=== PATIENT | female | born 1995 | race Caucasian/White ===

== ENCOUNTER 2017-10-21 12:45 | Emergency (ER) | payer BC, SELFPAY ==
[2017-10-21 12:46] VITALS: BP 130/94; PULSE 118; RESP 18; TEMP 37.6; O2SAT 100; BMI 48.5
[2017-10-21 14:00] LABS: Absolute Lymphocyte Count 1.95 X10^3/ul (0.83-4.51); Absolute Neutrophil Count 5.9 X10^3/uL (2.0-7.7); Basophil# 0.03 X10^3/uL; Basophil% 0.4 % (0-1); Eosinophil# 0.16 X10^3/uL; Eosinophils% 1.9 % (0-5); Hematocrit 43.6 % (37-47); Hemoglobin 15.7 g/dl (12.0-15.0); Lymphocyte # 1.95 X10^3/ul (4.0); Lymphocyte % 22.9 % (19-41); Mean Corpuscular Hgb 29.5 pg (27.0-32.0); Mean Corpuscular Volume 81.8 fL (81-99); Mean Platelet Vol. 9.6 fl (6.2-12.0); Monocyte# 0.46 X10^3/uL; Monocyte% 5.4 % (0-10); Neutrophil # 5.88 X10^3/uL (2.7-7.7); Neutrophil % 69.2 % (47-70); Platelet Count 266 K/mm3 (150-450); RBC Distribution Width CV 12.6 % (11.6-14.6); RBC Distribution Width SD 37.7 fl (35.1-43.9); Red Blood Count 5.33 M/mm3 (4.2-5.4); White Blood Count 8.5 K/mm3 (4.4-11.0)
[2017-10-21 14:01] LABS: POSITIVE COUNT NO; POSITIVE DIFFERENTIAL NO; POSITIVE MORPHOLOGY NO
[2017-10-21 14:14] LABS: ALB/GLOB Ratio 1.1 RATIO (0.9-2.4); AST(SGOT) 18 U/L (15-37); Alanine Aminotransfer ALT/SGPT 36 U/L (13-56); Albumin, Serum 4.1 g/dL (3.2-5.0); Alkaline Phosphatase 96 U/L (45-117); Anion Gap 8 (5-15); BUN 12 mg/dL (7-18); Calcium,Total 8.9 mg/dL (8.5-10.1); Chloride 106 mmol/L (98-107); EST Glomerular Filtration Rate 96 mL/min (>60); Est Glom Filt Rate - Afr Amer 116 mL/min (>60); Estimated Creatinine Clearance 92.02 ml/min; Globulin 3.7 g/dL (2.2-4.2); Glucose 83 mg/dL (74-106); Lipase 167 U/L (73-393); Potassium 3.9 mmol/L (3.5-5.1); Protein, Total 7.8 g/dL (6.4-8.2); Sodium Level 139 mmol/L (136-145)
[2017-10-21 14:41] LABS: Mucous, Urine 0 SEEN /hpf (<or=2+)
[2017-10-21 14:42] LABS: Color, Urine Yellow (Yellow); Glucose, Dipstick Normal (Normal); Ketone-Dipstick 5 mg/dl (Negative); Leukocyte Esterase-Dipstick 25 /ul (Negative); Nitrite-Dipstick Negative (Negative); Occult Blood-Urine 50 /ul (Negative); Protein-Dipstick 30 mg/dl (Negative); Urine Bilirubin Dipstick Negative (Negative); Urine Clarity Sl. Cloudy (Clear); Urine Urobilinogen Normal (Normal)
[2017-10-21 14:48] LABS: Bacteria 1+ /hpf (None Seen); Red Blood Cells-Urine 0-5 SEEN /hpf (0-5); Squamous Epithelial Cells - UA 0-5 SEEN /hpf (5-10); White Blood Cells 0-5 SEEN /hpf (0-5)
--- NOTE | 2017-10-21 15:14 | ED.VISSUMM ---
- ER Visit Summary Date of Service: 10/21/17 Chief Complaint: Intermittent left upper quadrant pain that is worse today History of Present Illness: The patient is a 22 F ports intermittent left upper quadrant pain for 1 month. She presents today because the pain is worse associated with nausea. She denies cough, shortness of breath, difficulty breathing or pleuritic pain. She denies history of liver disease, food intolerance or use of alcohol. She denies any nausea, vomiting or diarrhea at the onset of her abdominal pain. She states she had one loose stool with nausea today and this concerned her. She denies dysuria, frequency, urgency or hematuria. She denies history of renal ureterolithiasis. She denies any back or flank pain. She denies any vaginal bleeding, vaginal discharge or any vaginal lesions. She denies headache, photophobia sips of her neck. She denies paresthesia, anesthesia or motor weakness. She denies bruising easily or problems with bleeding disorder. She denies any allergic type symptoms. Placed on nitrofurantoin for UTI on Tuesday. Exit interview I was informed that patient took a bubble bath 1-2 days prior to being diagnosed with urinary tract infection and also elaborated sexual activity. Physical Examination: Vital signs are remarkable for a blood pressure 123/93. She is afebrile. Head is atraumatic normocephalic. Pupils are equal round reactive. Extraocular muscles are intact. TMs are pearly white with landmarks noted. Nares patent with no drainage. Posterior pharynx without erythema or exudate. Uvula is midline. There is no dysphonia or dysphasia. Trachea is midline. There is no stridor with auscultation of the neck. Heart is regular without murmur, gallop or rub. S1 and S2 are normal. Lungs are clear to auscultation with good movement of air bilaterally. Abdomen is soft with tenderness and decreased bowel sounds. Question of guarding to deep palpation left lower quadrant and right lower quadrant. There is no CVA tenderness. There are no skin lesions. There is no evidence of trauma. The remainder of her exam is unremarkable please read written note Test Results: CT of the abdomen pelvis with IV contrast is negative for any acute process. CBC and BMP are normal. Urine is positive for leukoesterase and blood 550 respectively. Nitrites negative. Urinalysis reveals 5-10 WBCs 0-5 RBCs and 2+ bacteria. Emergency Department Course and Treatment: Her abdominal pain with recent UTI CBC BMP and UA was obtained. Since she is having no urinary symptoms this may be present appendicitis secondary to information of the ureter or possibly diverticular disease. Because there is evidence that her urinary tract infection has not improved a culture was sent. She received 1 g of Rocephin IV piggyback in the emergency department and discharged with a prescription for ciprofloxacin 500 mg twice daily ?7 days. Treatment Plan: Ciprofloxacin 500 mg twice daily for 7 days and follow-up with PCP Disposition: To home after Rocephin infuses Impression: 1. Right lower and left lower quadrant abdominal pain uncertain etiology 2. Urinary tract infection failed outpatient appropriate treatment This note was generated with [employer] dictation software. It may contain incorrect words, spelling, and punctuation that were not noted in review of the chart prior to signing ED Disposition - Plan for ED Patient: Disposition: Home or Assisted Living Chief Complaint: Abd Pain Instructions: ED UTI Cystitis Female Prescriptions: Ciprofloxacin [Cipro] 500 mg PO BID #14 tab Referrals: Care Physician,No Primary [Primary Care Provider] - Alexis Hu MD [NON-STAFF] - 3-5 Days
--- NOTE | 2017-10-21 15:28 | ED.DCSUM_ITS ---
- ER Visit Summary Date of Service: 10/21/17 Chief Complaint: [] History of Present Illness: The patient is a 22 F [] Physical Examination: [] Test Results: [] Emergency Department Course and Treatment: [] Treatment Plan: [] Disposition: [] Impression: [] This note was generated with [employer] dictation software. It may contain incorrect words, spelling, and punctuation that were not noted in review of the chart prior to signing ED Disposition - Plan for ED Patient: Disposition: Home or Assisted Living Chief Complaint: Abd Pain Instructions: ED UTI Cystitis Female Prescriptions: Ciprofloxacin [Cipro] 500 mg PO BID #14 tab Referrals: Care Physician,No Primary [Primary Care Provider] - Mina Watkins MD [STAFF PHYSICIAN] - 1 Week
== END 2017-10-21 16:55 | disposition home or self-care (01) ==
PROVIDERS: Emergency Provider Emergency Medicine
DX: R10.12 Left upper quadrant pain (principal); N39.0 Urinary tract infection, site not specified; E66.9 Obesity, unspecified
CPT/HCPCS: 80053; 81001; 83690; 85025; 96365; 99283; J7050; A4216

== ENCOUNTER 2021-08-31 02:50 | Inpatient (IN) | payer BC, SELFPAY ==
[2021-08-31] VITALS (22 sets, daily range): BP systolic 114–153; BP diastolic 50–97; PULSE 73–94; RESP 12–20; TEMP 36.1–36.8; O2SAT 95–100; BMI 51.5
[2021-08-31] MEDS: Lactated Ringers 1,000 ML 999 ML IV ×2 (02:30→15:50)
[2021-08-31 02:46] LABS: ROM Internal Control Test YES-OK TO RESULT pt. (Internal QC)
[2021-08-31 02:47] LABS: ROM Patient Test POSITIVE (Negative)
[2021-08-31] MEDS: Acetaminophen 500 MG Tablet 1000 MG PO ×4 (02:58→21:06)
[2021-08-31 03:07] LABS: Absolute Neutrophil Count 7.3 X10^3/uL (2.0-7.7); Basophil# 0.02 X10^3/uL; Basophil% 0.2 % (0-1); Eosinophil# 0.14 X10^3/uL; Eosinophils% 1.4 % (0-5); Hematocrit 36.4 % (37-47); Hemoglobin 13.2 g/dL (12.0-15.0); Lymphocyte % 18.9 % (19-41); Mean Corp Hgb Conc 36.3 g/dL (32-36); Mean Corpuscular Hgb 29.5 pg (27.0-32.0); Mean Corpuscular Volume 81.4 fL (81-99); Mean Platelet Vol. 10.7 fl (6.2-12.0); Monocyte# 0.59 X10^3/uL; Monocyte% 5.9 % (0-10); NRBC Flagged by Analyzer 0 % (0-5); Neutrophil # 7.34 X10^3/uL (2.7-7.7); POSITIVE COUNT YES; Platelet Count 150 K/mm3 (150-450); RBC Distribution Width CV 12.6 % (11.6-14.6); RBC Distribution Width SD 37.3 fl (35.1-43.9); Red Blood Count 4.47 M/mm3 (4.2-5.4); White Blood Count 10.1 K/mm3 (4.4-11.0)
[2021-08-31 03:09] LABS: Differential Indicated SCAN CRITERIA MET
[2021-08-31] MEDS: Sodium Citrate/Citric Acid 30 ML UDC PO (03:31)
[2021-08-31] MEDS: Lactated Ringers 1,000 ML 150 ML IV (03:31)
--- NOTE | 2021-08-31 03:42 | PCM.HP.OB ---
HPI - General General Date of Admission: 08/31/21 HPI Narrative MARÍA TURNER, is a 26 F who presents with LOF & ctxs. Maternal Data Information Final JESUS: [birth year] (37&2) [facility] Medical History (Updated 08/31/21 @ 03:[address] Orlando Tam MD) Chronic hypertension Chronic hypertension affecting Kidney disease Nephrotic syndrome Home Medications aspirin [Baby Aspirin] 1 tab PO DAILY 08/31/21 [History Last Taken Unknown] diltiazem HCl [Cardizem] 60 mg PO BID 08/31/21 [History Last Taken Unknown] labetalol 200 mg PO BID 08/31/21 [History Last Taken Unknown] [id number] [] 1 tab PO DAILY 08/31/21 [History Last Taken Unknown] Allergy/AdvReac Type Severity Reaction Status Date / Time No Known Allergies Allergy Verified 08/31/21 02:32 Family History no significant family his Surgical History no surgical history Social History Smoking Status: Never smoker History Elective abortions Hx Para 0 Spontaneous abortions Hx # Term Pregnancies Ectopic pregnancies Hx # Pregnancies Multiple births # of living children Vital Signs Vital Signs Vital Signs: 08/31/21 02:04 08/31/21 02:05 08/31/21 03:06 Temperature 97.8 F 97.8 F Temperature Source Temporal Temporal Pulse Rate 87 84 Respiratory Rate 18 Blood Pressure 140/97 H 140/97 H Blood Pressure Mean 111 BP Systolic 140 BP Diastolic 97 Blood Pressure Source Monitor Blood Pressure Position Semi-Fowlers Blood Pressure Location Left Arm Pulse Ox 98 98 Oxygen Delivery Method Room Air 08/31/21 03:07 08/31/21 03:09 Temperature 97.8 F Temperature Source Temporal Pulse Rate 74 73 Respiratory Rate 18 Blood Pressure 140/97 H Blood Pressure Mean 111 BP Systolic BP Diastolic Blood Pressure Source Monitor Blood Pressure Position Semi-Fowlers Blood Pressure Location Left Arm Pulse Ox 99 100 Oxygen Delivery Method Room Air Weight Weight: 300 lb Body Mass Index (BMI) 51.5 Physical Exam Const alert, oriented x3 and no apparent distress Chest inspection of chest normal GI soft to palpation and non-distended Inspection: gravid external exam normal Narrative: 4cm on admission but now 5-6cm dilated per RN Extremity normal to inspection and no calf tenderness Labs Labs Labs: Blood Type Pending Antibody Screen Pending Hct 36.4 % (37-47) L Hgb 13.2 g/dL (12.0-15.0) See [facility] H&P Assessment & Plan (1) Chronic hypertension affecting : PLAN: On cardizem & labetalol (2) Nephrotic syndrome: PLAN: Patient seen by MFM during and has suspected FSGS. (3) Breech presentation: QUALIFIERS: Fetus number: single or unspecified fetus Qualified Code(s): O32.1XX0 - Maternal care for breech presentation, not applicable or unspecified COMMENT: 37&2 PLAN: MOD - proceed with for breech and labor. Patient signed informed consent with last week. Briefly reviewed R/B/A again and patient wishes to proceed with .
--- NOTE | 2021-08-31 05:26 | OP.PCM_ITS ---
Maternal Data Information Final JESUS: [birth year] Gestational age: 37&2 Details Operative Information Date of Procedure: 08/31/21 Pre-Operative Diagnosis: (1) Breech presentation (2) Labor (3) Chronic hypertension Post-Operative Diagnosis: Same Indications for : Breech Indications Narrative: The patient was taken to the operating room where spinal anesthesia was placed & found to be adequate. She was prepped and draped in the dorsal supine position with a leftward tilt. A Pfannenstiel skin incision was made approximately 2 cm above the symphysis pubis and carried through to the underlying fascia with the scalpel. The fascia was incised incised in the midline and extended laterally with the Joaquin scissors. The rectus muscles were in the midline and the peritoneum was entered carefully and bluntly. The peritoneal incision was stretched and the bladder blade was inserted. Vesicouterine peritoneum was tented up, incised & then bladder flap created gently. The uterine incision was made in a low transverse fashion with the scalpel and extended superiorly and inferiorly with blunt dissection. The 's buttocks were grasped and delivered carefully via typical breech maneuvers. The 3VC cord was clamped and cut. The was handed off to the waiting business process expert. The placenta was delivered with fundal massage and gentle traction in the standard fashion. The uterus was exteriorized and cleared of clots and debris. The uterine incision was closed by using 2 #1 Vicryl sutures in a running locked fashion. Monocryl suture was used in an imbricating fashion. The incision was examined and was found to be hemostatic. The uterus was returned to the abd ominal cavity. After irrigating Frankie was placed over the uterine incision as some areas were denuded (but hemostatic). The rectus muscle was examined and any bleeding was Bovie cauterized & once hemostatic Frankie was placed on the rectus muscle as well. The fascia was closed with PDS suture in a running standard fashion. The subcutaneous tissue was examining and any bleeding was Bovie cauterized. The subcutaneous tissue was reapproximated with interrupted sutures. The skin was closed in a subcuticular fashion by the ELECTROPLATER while I was present in the labor & delivery unit. The remainder of the procedure was performed by me with assistance. All sponge, lap, and needle counts were correct. The patient was taken to her room for recovery in a stable condition. Classification: RASHARD Procedure Type: low transverse utilization review specialist #1: Lali Herrera Type of Anesthesia: Spinal Antibiotic Given: Ancef 3 grams IV x1 Estimated Blood Loss: 900ml Fluids Replaced: 1000ml Procedure Start Time: 04:11 Procedure Stop Time: 05:20 Findings Description of Procedure: Normal maternal uterus and adnexa Presentation: Positive for Complete Breech Amniotic Membrane Rupture Type: Artificial Amniotic Fluid Description: Clear Placental Delivery Description: Expressed Placenta Disposition: [facility] Cord Vessel Description: 3 Vessels Cord Entanglement: None A Gender: Male (weight = 2595g) (1 minute): 8 (5 minute): 9 Delayed Cord Clamping: No Complications Complications: None
[2021-08-31] MEDS: Oxytocin 30 units/NS 500 ml 30 UNITS/500 ML IV.SOLN 167 UNITS IV (05:35)
[2021-08-31] MEDS: Ondansetron 4 MG/2 ML Vial IV (06:20)
[2021-08-31] MEDS: Ketorolac 30 MG/ML Syringe IV ×3 (06:38→21:05)
[2021-08-31] MEDS: Lactated Ringers 1,000 ML 100 ML IV (09:03)
[2021-08-31] MEDS: Senna/Docusate Sodium 1 Tablet PO (09:03)
[2021-08-31] MEDS: Labetalol 200 MG Tablet PO ×2 (09:03→21:19)
[2021-08-31] MEDS: dilTIAZem 60 MG Tablet PO ×2 (09:03→21:19)
--- NOTE | 2021-08-31 12:15 | NURSING ---
Received report from Ligia Bella RN. I will assume care of patient at this time.
[2021-08-31 14:41] LABS: ALB/GLOB Ratio 0.5 RATIO (0.9-2.4); AST(SGOT) 31 U/L (15-37); Alanine Aminotransfer ALT/SGPT 23 U/L (13-56); Albumin, Serum 1.8 g/dL (3.2-5.0); Alkaline Phosphatase 95 U/L (45-117); Anion Gap 10 (5-15); BUN 12 mg/dL (7-18); BUN/Creat Ratio 18.6 RATIO (10-20); Calcium,Total 8.5 mg/dL (8.5-10.1); Chloride 110 mmol/L (98-107); Creatinine, Serum 0.65 mg/dL (0.55-1.02); EST Glomerular Filtration Rate 119 mL/min (>60); Est Glom Filt Rate - Afr Amer 144 mL/min (>60); Estimated Creatinine Clearance 114.25 ml/min; Globulin 3.5 g/dL (2.2-4.2); Glucose 72 mg/dL (74-106); Potassium 4.1 mmol/L (3.5-5.1); Protein, Total 5.3 g/dL (6.4-8.2); Sodium Level 140 mmol/L (136-145)
[2021-08-31] MEDS: 0.9% Saline Lock 10 ML Syringe IV (21:06)
[2021-08-31] MEDS: Enoxaparin 40 MG/0.4 ML Syringe SC (21:19)
--- NOTE | 2021-09-01 02:00 | NURSING ---
this RN inquired about whether or not to administer motrin at 0530 with pt having kidney issues. pt highly concerned about taking motrin and wanted this RN to check with provider before taking. skyler CASAS stated to give first dose after reviewing previous CMP results. Dr estrada to review patient's case and determine whether or not motrin should be continued after fist dose.
[2021-09-01] MEDS: 0.9% Saline Lock 10 ML Syringe IV (03:12)
[2021-09-01] MEDS: Acetaminophen 500 MG Tablet 1000 MG PO ×4 (03:12→22:14)
[2021-09-01] MEDS: Ketorolac 30 MG/ML Syringe IV (03:12)
[2021-09-01 03:21] VITALS: BP 131/74; PULSE 86; RESP 16; TEMP 36.3; O2SAT 98
[2021-09-01] MEDS: Ibuprofen 600 MG Tablet PO ×4 (05:31→23:55)
[2021-09-01 05:46] LABS: Hemoglobin 11.7 g/dL (12.0-15.0); Mean Corp Hgb Conc 35.5 g/dL (32-36); Mean Corpuscular Hgb 29.5 pg (27.0-32.0); Mean Corpuscular Volume 83.1 fL (81-99); Mean Platelet Vol. 9.9 fl (6.2-12.0); Platelet Count 192 K/mm3 (150-450); RBC Distribution Width CV 13.2 % (11.6-14.6); RBC Distribution Width SD 39.5 fl (35.1-43.9); Red Blood Count 3.97 M/mm3 (4.2-5.4); White Blood Count 10.8 K/mm3 (4.4-11.0)
[2021-09-01 08:08] VITALS: BP 128/75; PULSE 80; RESP 16; TEMP 36.4; O2SAT 98
--- NOTE | 2021-09-01 08:56 | PN.OBGYN_ITS ---
Subjective Subjective Pain controlled. Denies concerns. Objective Data Objective Data Vital Signs: Vital Signs Temp Pulse Resp BP Pulse Ox 97.6 F L 80 16 128/75 H 98 09/01/21 08:08 09/01/21 08:08 09/01/21 08:08 09/01/21 08:08 09/01/21 08:08 Oxygen Delivery Method Room Air Weight: 300 lb Body Mass Index (BMI) 51.5 Intake & Output: Intake and Output for Last 24 Hours 08/30/21 08/31/21 09/01/21 23:59 23:59 23:59 Intake Total 5650.83 / 5650.83 Output Total 1820 / 1820 Balance 3830.83 / 3830.83 Lab / Micro Data Result Diagrams: 09/01/21 05:35 08/31/21 14:00 Labs: Laboratory Results - last 24 hr 08/31/21 14:00: Sodium 140, Potassium 4.1, Chloride 110 H, Carbon Dioxide 20.0 L , Anion Gap 10, BUN 12, Creatinine 0.65, Estim Creat Clear Calc 114.25, Est GFR (MDRD) Af Amer 144, Est GFR (MDRD) Non-Af 119, BUN/Creatinine Ratio 18.6, Glucose 72 L, Calcium 8.5, Total Bilirubin 0.40, AST 31, ALT 23, Alkaline Phosphatase 95, Total Protein 5.3 L, Albumin 1.8 L, Globulin 3.5, Albumin/Globulin Ratio 0.5 L 09/01/21 05:35: WBC 10.8, RBC 3.97 L, Hgb 11.7 L, Hct 33.0 L, MCV 83.1, MCH 29.5, MCHC 35.5, RDW Std Deviation 39.5, RDW Coeff of Titi 13.2, Plt Count 192, MPV 9.9 Physical Exam Const alert, oriented x3 and no apparent distress HEENT normocephalic GI soft to palpation, non-tender and non-distended GI Narrative: fundus firm, mid & below umbilicus Incision - bandage c/d/i Extremity normal to inspection and no calf tenderness Assessment & Plan (1) Breech presentation: QUALIFIERS: Fetus number: single or unspecified fetus Qualified Code(s): O32.1XX0 - Maternal care for breech presentation, not applicable or unspecified COMMENT: POD#1 PLAN: Heme - HDS, CBC reviewed ID - AF, no signs infection GI - ADAT Routine care (2) Nephrotic syndrome: PLAN: Normal renal function on labs yesterday Needs PP nephrology follow up Will contact nephrology about use of NSAIDS PP (3) Chronic hypertension affecting : PLAN: Continue cardizem & labetalol
[2021-09-01] MEDS: Senna/Docusate Sodium 1 Tablet PO (10:25)
[2021-09-01] MEDS: Labetalol 200 MG Tablet PO ×2 (10:25→22:14)
[2021-09-01] MEDS: Enoxaparin 40 MG/0.4 ML Syringe SC ×2 (10:25→22:14)
[2021-09-01] MEDS: dilTIAZem 60 MG Tablet PO ×2 (11:12→22:14)
[2021-09-01] MEDS: Prenatal Vits Tablet 1 TABLET PO (12:40)
[2021-09-01 14:20] VITALS: BP 122/65; PULSE 87; RESP 16; TEMP 36.4; O2SAT 97
[2021-09-01 20:10] VITALS: BP 145/82; PULSE 80; RESP 18; TEMP 36.4; O2SAT 98
[2021-09-02 01:10] VITALS: BP 148/86; PULSE 82; RESP 18; TEMP 36.7; O2SAT 96
[2021-09-02] MEDS: Acetaminophen 500 MG Tablet 1000 MG PO ×4 (03:41→22:11)
[2021-09-02] MEDS: Ibuprofen 600 MG Tablet PO ×4 (05:57→23:56)
[2021-09-02 07:44] VITALS: BP 134/73; PULSE 77; RESP 16; TEMP 36.3; O2SAT 98
--- NOTE | 2021-09-02 08:56 | PCM.PN.OB ---
Subjective Subjective Patient seen at bedside. Sitting up in chair. Pain controlled with PO Tylenol and Motrin. Ambulating and voiding without difficulty. Passing flatus. Infant remains in SCN- patient and pumping. Denies any headache, vision changes, SOB or CP. Desires discharge home tomorrow. Objective Data Objective Data Vital Signs: Vital Signs Temp Pulse Resp BP Pulse Ox 97.4 F L 77 16 134/73 H 98 09/02/21 07:44 09/02/21 07:44 09/02/21 07:44 09/02/21 07:44 09/02/21 07:44 Oxygen Delivery Method Room Air Weight: 300 lb Body Mass Index (BMI) 51.5 Intake & Output: Intake and Output for Last 24 Hours 08/31/21 09/01/21 09/02/21 23:59 23:59 23:59 Intake Total 5650.83 / 5650.83 Output Total 1820 / 1820 Balance 3830.83 / 3830.83 Lab / Micro Data Result Diagrams: 09/01/21 05:35 08/31/21 14:00 Physical Exam Narrative Dressing is dry and intact Const alert and no apparent distress General Appearance: cooperative and comfortable Exam Limitations: no limitations HEENT normocephalic Eyes General Eye: normal appearance of both eyes Neck full ROM General: normal visual inspection Chest Chest: symmetrical chest wall rise Resp normal respiratory effort and normal air movement Effort and Inspection: symmetric chest movement Auscultation: clear to auscultation bilaterally Cardio regular rate and regular rhythm GI normal to inspection, nondistended, normoactive bowel sounds Back/Spine normal ROM Extremity full ROM and no calf tenderness General Extremity: normal exam except as noted Skin no rashes or lesions noted Neuro CN's II-XII intact bilaterally Psych mental status grossly normal Assessment & Plan (1) Chronic hypertension affecting : (2) Nephrotic syndrome: (3) Breech presentation: QUALIFIERS: Fetus number: single or unspecified fetus Qualified Code(s): O32.1XX0 - Maternal care for breech presentation, not applicable or unspecified COMMENT: POD#1 (4) Delivery by section: PLAN: POD 2 C/S BP stable on medications Pain controlled with Tylenol and Motrin- Patient can only have 5 days total of Motrin Breast feeding support Anticipate discharge home tomorrow
[2021-09-02] MEDS: Senna/Docusate Sodium 1 Tablet PO (10:11)
[2021-09-02] MEDS: Labetalol 200 MG Tablet PO ×2 (10:11→22:11)
[2021-09-02] MEDS: Enoxaparin 40 MG/0.4 ML Syringe SC ×2 (10:12→22:11)
[2021-09-02] MEDS: dilTIAZem 60 MG Tablet PO ×2 (10:18→22:12)
[2021-09-02] MEDS: Prenatal Vits Tablet 1 TABLET PO (12:43)
[2021-09-02 14:30] VITALS: BP 135/84; PULSE 80; RESP 16; TEMP 36.3; O2SAT 98
--- NOTE | 2021-09-02 15:45 | CASEMGMT ---
Social Work Labor and Delivery Date/Time of referral: 08.31.2021 at 1506 Date/Time of intervention: 09.02.2021 at 1430 Reason for referral: PHQ9 assessment score of 5, mild depression; baby has been admitted to the [facility]. History obtained from: Medical records, mother of baby (MOB) Feliica Keller, and father of baby (FOB) Jose Keller. *This telegraphic typewriter mechanic is the case management social worker for hospital of , and for continuity of care of families admitted to the SCN is also assigned to the [facility] for social work services.* Household composition: MOB, FOB, and FOB's older daughter. Home situation is reported as safe and adequate. Patient's parent/guardian status: SHARON is a 25 year old female, to the FOB. Parents have been together for 6 years. SHARON denies any form of abuse, control, or intimidation in this relationship. Baby Geoff is the first child for MOB and first for parents together. FOB's older daughter, Shayy, lives with the parents half time. Medical History: SHARON is G1, P0 to 1 after delivering Mayer. Parents report were trying for for about 2 years prior to conception. Record indicates MOB with HTN issues, as well as nephrotic syndrome. delivered via Caesarian section at 37 weeks gestation. Weighted 5 pounds 12 ounces. 's 8 and 9 at 1 and 5 minutes of life. Educational Status: No issues with reading, writing, or learning comprehension reported or identified for the parents. 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 FOB works 3rd shift at [employer]. Childcare/Caregiver(s): MOB and FOB. When SHARON returns to work, her mother/'s maternal grandmother will be assisting. Transportation: No issues. Programs/Agencies Involved: No involvement. Denies any needs for additional referrals to programs such as WIC or [facility]. Deny history of children services or legal issues. Behavioral Health Issues: MOB denies any official diagnosis if depression or anxiety, but reports to feel to have similar traits to MOB's mother who has anxiety. No history of counseling or medications. Reports some anxiety at the beginning of and then in the last couple of weeks. No reported history of suicidal thoughts, intent, planning, or attempts. No thoughts of harm to others. PHQ9 score after delivery a 5, which is just into the mild range of depression. Denies history of any substance use issues. Family Stressors: Prolonged time for conception. Baby admitted to SCN. Support Systems: MOB reports to have support from FOB, MOB's parents, FOB's parents, and several good female friends. Reports to have a mix of both practical and emotional support. Assessment Met with MOB and FOB together and then alone with the MOB. introduced to self and social work role, for both hospital of and [facility]. Parents both engaged, cooperative, pleasant. Report to have all needed supplies, and FOB will be off of work for the next 2 weeks. Educated parents to mood and anxiety disorders, importance of speaking up should symptoms become distressing, as well as options for support and treatment. Reviewed with the MOB outcome of the PHQ9.. Supportive listening provided. Offered emotional support. Answered questions MOB had. MOB and FOB report they have watched videos on both shaken baby prevention and safe sleeping. Deny and specific concerns with home going. MOB accepted information on shake baby, safe sleeping, and mood and anxiety disorders. MOB's affect appropriate to content discussed. Plan MOB wlll discharge home when ready. Baby to discharge home from the [facility] to parent when ready. Resources information provided for home going for depression. Social work remains available if any additional needs arise prior to discharge, though no other services reqeusted or indicated at this time. -YIFAN Sanford, ASSET PROTECTION MANAGER
[2021-09-02 20:22] VITALS: BP 137/68; PULSE 80; RESP 18; TEMP 36.3
[2021-09-03 03:29] VITALS: BP 141/88; PULSE 75; RESP 18; TEMP 36.1
[2021-09-03] MEDS: Acetaminophen 500 MG Tablet 1000 MG PO ×2 (03:33→09:53)
[2021-09-03] MEDS: Ibuprofen 600 MG Tablet PO ×2 (05:52→10:58)
--- NOTE | 2021-09-03 07:38 | PCM.DC.SUM ---
Providers Date of Admission: 08/31/21 Primary Care Physician: Debbie Primary Care Phys Reason For Visit: CSECTION Diagnosis Discharge Diagnosis (1) Chronic hypertension affecting : Status: Chronic Code(s): O10.919 - Unspecified pre-existing hypertension complicating , unspecified trimester (2) Nephrotic syndrome: Status: Acute Code(s): N04.9 - Nephrotic syndrome with unspecified morphologic changes (3) Breech presentation: Status: Acute Code(s): O32.1XX0 - Maternal care for breech presentation, not applicable or unspecified Qualifiers: Fetus number: single or unspecified fetus Qualified Code(s): O32.1XX0 - Maternal care for breech presentation, not applicable or unspecified (4) Delivery by section: Status: Acute Medications at Discharge Home Medications diltiazem HCl [Cardizem] 60 mg PO BID 08/31/21 labetalol 200 mg PO BID 08/31/21 [id number] 1 tab PO DAILY 08/31/21 Hospital Course Operations section Summary of Care Provided Hospital Course: Patient had primary section for breech presentation. Hospital course was uneventful. Physical Exam Narrative Dressing is dry and intact Const alert and no apparent distress General Appearance: cooperative and comfortable Exam Limitations: no limitations HEENT normocephalic Eyes General Eye: normal appearance of both eyes Neck full ROM General: normal visual inspection Chest Chest: symmetrical chest wall rise Resp normal respiratory effort and normal air movement Effort and Inspection: symmetric chest movement Auscultation: clear to auscultation bilaterally Cardio regular rate and regular rhythm GI normal to inspection, nondistended, normoactive bowel sounds Back/Spine normal ROM Extremity full ROM and no calf tenderness General Extremity: normal exam except as noted Skin no rashes or lesions noted Neuro CN's II-XII intact bilaterally Psych mental status grossly normal Weight / BMI Weight Weight: 300 lb Body Mass Index (BMI) 51.5 ABG / Lab / Microbiology Data Result Diagrams: 09/01/21 05:35 08/31/21 14:00 D/C Instructions Discharge Diet: No restrictions May resume sexual activity in: 6-8 weeks Weight Bearing Status: Weight bearing as tolerated Lifting Restrictions: 20 lbs Call your doctor if your incision/area has: Continuous Slow Oozing, Increased Pain/ Swelling, Increased Redness, Foul Smelling Discharge and Swelling at the incision site Call your doctor if you observe: Fever of 101 or Higher, Inability to urinate, Using more than 1 pad per hour, Shortness of breath, Chest pain, Calf discomfort and Uncontrolled pain Remove Dressing in: 5 days Cleanse incision/area with: Soap & Water and Keep Dressing Clean & Dry Additional Instructions: Please follow up next week in office for BP check When: 1 week in office for incision check or sooner if needed 6 weeks Meaningful Use Info Meaningful Use Diagnoses (Choose all that apply): None applicable Discharge Plan Admission Admit Date/Time: 08/31/21 02:50 Primary Reason for Your Visit: primary c/s Attending Provider: Orlando Tam Primary Care Provider: Care Physician,Debbie Primary Discharge Orders/Prescriptions Prescriptions: Continued labetalol 200 mg Tablet 200 mg PO BID RF: 0 lkrhprqj-[id number]-FA 1 mg Tablet 1 tab PO DAILY RF: 0 diltiazem HCl [Cardizem] 60 mg Tablet 60 mg PO BID RF: 0 Discontinued aspirin [Baby Aspirin] 81 mg Tablet,Chewable 1 tab PO DAILY RF: 0 Referrals / Follow Up: Care Physician,No Primary [Primary Care Provider] - Disposition Disposition (needs filled in before D/C Order can be placed): Home, Self Care
[2021-09-03 08:06] VITALS: BP 149/86; PULSE 80; RESP 16; TEMP 36.6; O2SAT 98
[2021-09-03] MEDS: Senna/Docusate Sodium 1 Tablet PO (08:53)
[2021-09-03] MEDS: Labetalol 200 MG Tablet PO (08:53)
[2021-09-03] MEDS: Enoxaparin 40 MG/0.4 ML Syringe SC (08:53)
[2021-09-03] MEDS: dilTIAZem 60 MG Tablet PO (09:52)
[2021-09-03 09:55] VITALS: BP 149/89
[2021-09-03 11:00] VITALS: BP 143/75
[2021-09-03 11:56] VITALS: BP 118/67
== END 2021-09-03 12:30 | disposition home or self-care (01) | DRG 787 ==
LOC: WPOUT 03:02 → WP 03:02
PROVIDERS: Advanced Practice Midwife; Admitting Provider Obstetrics & Gynecology; Referring Provider Obstetrics & Gynecology; Visit Provider Obstetrics & Gynecology
DX: O32.1XX0 Maternal care for breech presentation, not applicable or unspecified (principal); O10.92 Unspecified pre-existing hypertension complicating childbirth; O26.833 Pregnancy related renal disease, third trimester; I12.9 Hypertensive chronic kidney disease with stage 1 through stage 4 chronic kidney disease, or unspecified chronic kidney disease; N18.9 Chronic kidney disease, unspecified; Z3A.37 37 weeks gestation of pregnancy; Z37.0 Single live birth; Z79.899 Other long term (current) drug therapy; Z79.82 Long term (current) use of aspirin
CPT/HCPCS: 59025; 76815; 80053; 84112; 85025; 85027; 86850; 86900; 86901; 99218; 99251; J7120; A4216; G0378; G0463; J2405